=== PATIENT | male | born 1960 | race Caucasian/White ===

== ENCOUNTER 2016-08-04 20:15 | Inpatient (IN) | payer MEDICARE, OTHER ==
[~2016-08-04] VITALS: Ht 185.4 cm; Wt 97.2 kg
[2016-08-04] MEDS ORDERED: IV NORMAL SALINE 1,000ML 1,000 ML IV SCH (20:17)
[2016-08-04] MEDS ORDERED: 0.9 % SODIUM CHLORIDE 10 ML DISP.SYRIN. IV PRN (20:30)
[2016-08-04] MEDS ORDERED: ONDANSETRON PF 4 MG/2 ML VIAL. IV ONE (20:30)
[2016-08-04] MEDS ORDERED: MVI, ADULT NO.4 WITH VIT K 10 ML, FOLIC ACID SYRINGE for ER 1 MG, THIAMINE 100 MG in IV... IV SCH ×4 (20:30)
[2016-08-04] MEDS ORDERED: LORazepam 2 MG/ML VIAL IV ONE (20:30)
[2016-08-04 20:49] LABS: BASO # 0.1 x10^3/uL (0.0-0.2); BASO % 1 % (0-3); EOS # 0.7 x10^3/uL (0.0-0.7); EOS % 6 % (0-3); HEMATOCRIT 43.4 % (39.0-53.0); HEMOGLOBIN 14.9 g/dL (13.0-17.5); LYMPH # 2.8 x10^3/uL (1.0-4.8); LYMPH % 24 % (24-48); MEAN CORPUSCULAR HEMOGLOBIN 34 pg (25-35); MEAN CORPUSCULAR HGB CONC 34 g/dL (31-37); MEAN CORPUSCULAR VOLUME 100 fL (79-100); MONO # 1.7 x10^3/uL (0.0-1.1); MONO % 15 % (0-9); NEUT # 6.2 x10^3uL (1.8-7.7); NEUT % 54 % (31-73); PLATELET COUNT 237 x10^3/uL (140-400); RED BLOOD COUNT 4.33 x10^6/uL (4.30-5.70); WHITE BLOOD COUNT 11.5 x10^3/uL (4.0-11.0)
[2016-08-04 20:54] LABS: BILIRUBIN,URINE NEG (NEG); CLARITY,URINE CLEAR; COLOR,URINE STRAW; GLUCOSE,URINE NEG (NEG); NITRITE,URINE NEG (NEG); UROBILINOGEN,URINE 0.2 mg/dL (0.2 mg/dL)
[2016-08-04 20:55] LABS: BACTERIA,URINE 0 /HPF (0-FEW); RBC,URINE 0 /HPF (0-2); SQUAMOUS EPITHELIAL CELL,UR OCC /LPF; WBC,URINE OCC /HPF (0-4)
[2016-08-04 20:56] LABS: AMPHETAMINE/METHAMPHETAMINE NEG (NEG); BARBITURATES NEG (NEG); BENZODIAZEPINES NEG (NEG); CANNABINOIDS NEG (NEG); COCAINE NEG (NEG); METHADONE NEG (NEG); OPIATES NEG (NEG); PHENCYCLIDINE NEG (NEG)
[2016-08-04 21:14] LABS: ALBUMIN 3.7 g/dL (3.4-5.0); CALCIUM 8.5 mg/dL (8.5-10.1); CREATININE 0.9 mg/dL (0.7-1.3); DIRECT BILIRUBIN 0.1 mg/dL (0.0-0.2); GFR 87.3; POTASSIUM 3.5 mmol/L (3.5-5.1); TOTAL BILIRUBIN 0.3 mg/dL (0.2-1.0); TOTAL PROTEIN 7.9 g/dL (6.4-8.2)
--- NOTE | 2016-08-04 21:15 | RAD ---
EXAM: Head CT without contrast. HISTORY: Fall. TECHNIQUE: Computed tomographic images of the head were obtained without contrast. *One or more of the following individualized dose reduction techniques were utilized for this examination: 1. Automated exposure control. 2. Adjustment of the mA and/or kV according to patient size. 3. Use of iterative reconstruction technique. COMPARISON: 08/29/2014. FINDINGS: There is increased density within the extra-axial space along the left cerebral convexity which is not seen on consecutive images and likely due to prominent cortical vessels. No convincing hemorrhage is seen. There are chronic infarcts within the left greater than right posterior frontal lobes. There are subtle areas of hypodensity within the cerebral white matter, likely due to chronic small vessel disease. The orbits are unremarkable. There is moderate right and mild left maxillary and severe bilateral ethmoid sinus mucosal thickening. There is complete opacification of the right mastoid air cells and middle ear. No calvarial lesion is seen. IMPRESSION: 1. No acute intracranial finding. 2. Chronic infarcts within the left greater than right posterior frontal lobes near the vertex. 3. Subtle areas of hypodensity within the cerebral white matter, likely artifactual due to chronic small vessel disease. 4. Complete opacification of the left mastoid air cells and middle ear. Correlate for otomastoiditis. 5. Paranasal sinus disease. Electronically signed by: Lisa Mcneill MD (08/04/2016 9:12 PM)
--- NOTE | 2016-08-04 21:37 | PHYS DOC ---
Past History Past Medical History: GERD, Seizure Past Surgical History: No Surgical History Alcohol Use: Heavy Drug Use: None Adult General Chief Complaint Chief Complaint: ALCOHOL INTOXICATION HPI HPI This is a pleasant 56 and respiratory by EMS because he was found down in his apartment by his roommate intoxicated. It is unclear how long the the patient had been down on the floor apparently sleeping. The roommate was fearful because he was unable to arouse him easily. Upon EMS arrival he is intoxicated but very appropriate although he had slurred speech and no complaints. He began talking about his experiences in his service for the [employer]. He denies any complaint of chest pain, headache, neck pain, numbness and tingling in any extremity. He is very jovial but also not up historian. He does provide a questionable history of delirium tremens in the past as well as multiple head injuries. Patient denies any abdominal pain, nausea, vomiting or other symptoms. He says he drinks heavy liquor tonight he was drinking Massimo Beam Review of Systems Review of Systems Constitutional: Denies fever or chills [] Eyes: Denies change in visual acuity, redness, or eye pain [] HENT: Denies nasal congestion or sore throat [] Respiratory: Denies cough or shortness of breath [] Cardiovascular: No additional information not addressed in HPI [] GI: Denies abdominal pain, nausea, vomiting, bloody stools or diarrhea [] : Denies dysuria or hematuria [] Musculoskeletal: Denies back pain or joint pain [] Integument: Denies rash or skin lesions [] Neurologic: Denies headache, focal weakness or sensory changes [] Intoxicated and somewhat hard understand but denied any of the symptoms. He is a questionable historian Current Medications Current Medications Current Medications Medications (Trade) Dose Ordered Sig/[facility] Start Time Stop Time Status Last Admin Dose Admin Lorazepam (Ativan) 2 mg 1X ONCE 08/04/16 20:30 08/04/16 20:52 DC 08/04/16 20:22 2 MG Multivitamins/ Minerals 10 ml/ Folic Acid 1 mg/ Thiamine HCl 100 mg/Sodium Chloride 1,011.2 ml @ 1,000 mls/ hr Q1H 08/04/16 20:30 08/04/16 21:13 DC 08/04/16 20:30 1,000 MLS/HR Ondansetron HCl (Zofran) 4 mg 1X ONCE 08/04/16 20:30 08/04/16 20:52 DC 08/04/16 20:22 4 MG Sodium Chloride 1,000 ml @ 1,000 mls/hr Q1H 08/04/16 20:17 08/04/16 21:16 DC 08/04/16 20:17 1,000 MLS/HR Sodium Chloride (Normal Saline Flush) 10 ml QSHIFT PRN 08/04/16 20:30 08/04/16 20:22 10 ML Allergies Allergies Allergies Coded Allergies Type Severity Reaction Last Updated Verified No Known Drug Allergies 08/04/16 No Physical Exam Physical Exam Constitutional: Well developed, well nourished, no acute distress, very intoxicated appearance with slurred speech no obvious signs of deformity on his forehead upper chest or back. HENT: Normocephalic, atraumatic, bilateral external ears normal, dry mucous membranes, no oral exudates, nose normal. [] Eyes: PERRLA, EOMI, conjunctiva injected but nonicteric, no discharge. [] Neck: Normal range of motion, no tenderness, supple, no stridor. [] Cardiovascular:Heart rate regular rhythm, no murmur [] Lungs & Thorax: Bilateral breath sounds clear to auscultation [] Abdomen: Bowel sounds normal, soft, no tenderness, no masses, no pulsatile masses. [] Skin: Warm, dry, no erythema, no rash. [] Back: No tenderness, no CVA tenderness. [] Extremities: No tenderness, no cyanosis, no clubbing, ROM intact, no edema. [] Neurologic: Patient is intoxicated but oriented to person and history of his prior service. Psychologic: This patient is jovial but not at these historian he becomes agitated at times but easily consolable and calm's with reassurance. As soon as we turned off the overhead lights this patient fell sleep with sonorous respirations symptoms and treatment is 98% on room air. Current Patient Data Vital Signs Vital Signs Date Time Temp Pulse Resp B/P (MAP) Pulse Ox O2 Delivery O2 Flow Rate FiO2 08/04/16 20:15 97.5 80 20 94 Room Air Lab Results Laboratory Tests Test 08/04/16 20:20 08/04/16 20:31 White Blood Count 11.5 x10^3/uL (4.0-11.0) H Red Blood Count 4.33 x10^6/uL (4.30-5.70) Hemoglobin 14.9 g/dL (13.0-17.5) Hematocrit 43.4 % (39.0-53.0) Mean Corpuscular Volume 100 fL (79-100) Mean Corpuscular Hemoglobin 34 pg (25-35) Mean Corpuscular Hemoglobin Concent 34 g/dL (31-37) Red Cell Distribution Width 13.0 % (11.5-14.5) Platelet Count 237 x10^3/uL (140-400) Neutrophils (%) (Auto) 54 % (31-73) Lymphocytes (%) (Auto) 24 % (24-48) Monocytes (%) (Auto) 15 % (0-9) H Eosinophils (%) (Auto) 6 % (0-3) H Basophils (%) (Auto) 1 % (0-3) Neutrophils # (Auto) 6.2 x10^3uL (1.8-7.7) Lymphocytes # (Auto) 2.8 x10^3/uL (1.0-4.8) Monocytes # (Auto) 1.7 x10^3/uL (0.0-1.1) H Eosinophils # (Auto) 0.7 x10^3/uL (0.0-0.7) Basophils # (Auto) 0.1 x10^3/uL (0.0-0.2) Sodium Level 138 mmol/L (136-145) Potassium Level 3.5 mmol/L (3.5-5.1) Chloride Level 101 mmol/L (98-107) Carbon Dioxide Level 23 mmol/L (21-32) Anion Gap 14 (6-14) Blood Urea Nitrogen 8 mg/dL (8-26) Creatinine 0.9 mg/dL (0.7-1.3) Estimated GFR (Cockcroft-Gault) 87.3 Glucose Level 88 mg/dL (70-99) Calcium Level 8.5 mg/dL (8.5-10.1) Total Bilirubin 0.3 mg/dL (0.2-1.0) Direct Bilirubin 0.1 mg/dL (0.0-0.2) Aspartate Amino Transferase (AST) 21 U/L (15-37) Alanine Aminotransferase (ALT) 23 U/L (16-63) Alkaline Phosphatase 84 U/L (46-116) Creatine Kinase 78 U/L (39-308) Creatine Kinase MB (Mass) 0.7 ng/mL (0.0-3.6) Creatine Kinase MB Relative Index 0.9 % (0-4) Troponin I Quantitative < 0.017 ng/mL (0-0.055) Total Protein 7.9 g/dL (6.4-8.2) Albumin 3.7 g/dL (3.4-5.0) Ethyl Alcohol Level 279 mg/dL (0-10) H Urine Collection Type Unknown Urine Color Straw Urine Clarity Clear Urine pH 5.5 Urine Specific Armstrong <=1.005 Urine Protein Neg (NEG-TRACE) Urine Glucose (UA) Neg mg/dL (NEG) Urine Ketones (Stick) Neg mg/dL (NEG) Urine Blood Trace (NEG) Urine Nitrite Neg (NEG) Urine Bilirubin Neg (NEG) Urine Urobilinogen Dipstick 0.2 mg/dL (0.2 mg/dL) Urine Leukocyte Esterase Neg (NEG) Urine RBC 0 /HPF (0-2) Urine WBC Occ /HPF (0-4) Urine Squamous Epithelial Cells Occ /LPF Urine Bacteria 0 /HPF (0-FEW) Urine Opiates Screen Neg (NEG) Urine Methadone Screen Neg (NEG) Urine Barbiturates Neg (NEG) Urine Phencyclidine Screen Neg (NEG) Urine Amphetamine/Methamphetamine Neg (NEG) Urine Benzodiazepines Screen Neg (NEG) Urine Cocaine Screen Neg (NEG) Urine Cannabinoids Screen Neg (NEG) Urine Ethyl Alcohol Pos (NEG) EKG EKG [] Radiology/Procedures Radiology/Procedures [] [place] [address] IMAGING REPORT Signed PATIENT: NOE AMEZCUA ACCOUNT: [id number] : 1960 LOCATION: ER AGE: 56 SEX: M EXAM STATUS: REG ER ORD. PHYSICIAN: TANYA MARQUEZ MD REASON: ?? fall found down at home, intoxication, confusion PROCEDURE: CT HEAD WO CONTRAST EXAM: Head CT without contrast. HISTORY: Fall. TECHNIQUE: Computed tomographic images of the head were obtained without contrast. *One or more of the following individualized dose reduction techniques were utilized for this examination: 1. Automated exposure control. 2. Adjustment of the mA and/or kV according to patient size. 3. Use of iterative reconstruction technique. COMPARISON: 08/29/2014. FINDINGS: There is increased density within the extra-axial space along the left cerebral convexity which is not seen on consecutive images and likely due to prominent cortical vessels. No convincing hemorrhage is seen. There are chronic infarcts within the left greater than right posterior frontal lobes. There are subtle areas of hypodensity within the cerebral white matter, likely due to chronic small vessel disease. The orbits are unremarkable. There is moderate right and mild left maxillary and severe bilateral ethmoid sinus mucosal thickening. There is complete opacification of the right mastoid air cells and middle ear. No calvarial lesion is seen. IMPRESSION: 1. No acute intracranial finding. 2. Chronic infarcts within the left greater than right posterior frontal lobes near the vertex. 3. Subtle areas of hypodensity within the cerebral white matter, likely artifactual due to chronic small vessel disease. 4. Complete opacification of the left mastoid air cells and middle ear. Correlate for otomastoiditis. 5. Paranasal sinus disease. Electronically signed by: Lisa Young MD (08/04/2016 9:12 PM) DICTATED AND SIGNED BY: LISA YOUNG MD DATE: 08/04/162108 CC: TANYA MARQUEZ MD; UNKNOWN ~ Course & Med Decision Making Course & Med Decision Making Pertinent Labs and Imaging studies reviewed. (See chart for details) patient's laboratory work is returned demonstrates an EtOH level of 279 which explains his level of intoxication. The rest of this patient's labs are unremarkable at this time. He has no evidence of a toxidrome. There is no evidence of hypoventilation on physical exam or on vital signs. Patient is resting quietly and comfortably in a little concerned about this questionable history of delirium tremens in the past. I may admit him to the hospital for a period of observation to ensure that he has adequate treatment. While in the emergency department he did receive 2 mg of IV Ativan. CT scan of the head is still pending at this time approximately 9:36 PM. 20 9:[address] is completed with no evidence of intracranial injury hematoma or mass or bleed. Patient is completely intoxicated and sleeping quietly at this time. I'm concerned given his history of DTs as per cc supply. He first arrived and there is no one home with him at this time he has no ride home and no one that can observe him overnight I would for her to admit this patient to inpatient setting really observed and treated with benzodiazepines to prevent any DTs from erupting. There also allow us to slowly bring down his alcohol level appropriately so that he does not precipitate an acute withdrawal reaction. Landscape Designer note: Called internal medicine at approximately 9:55 PM Landscape Designer called at of the service hospitalist Consult called back at: 9:57 Discussed the case I presented and they agreed with admission. Time of acceptance 9:57 impression: Acute alcohol intoxication, history of delirium tremens Disposition: Given his acute intoxication and no clear safety net at home we will admit him to the hospital for alcohol withdrawal and prevent him from going to seizures by using an aggressive benzodiazepine protocol with clonidine and Haldol if necessary [] Dragon Disclaimer Dragon Disclaimer This chart was dictated in whole or in part using Voice Recognition software in a busy, high-work load, and often noisy Emergency Department environment. It may contain unintended and wholly unrecognized errors or omissions. Departure Departure: Impression: Primary Impression: Alcohol intoxication Disposition: ADMITTED INPATIENT Admitting Physician: Senia Ramirez Condition: GUARDED Referrals: UNKNOWN (PCP) TANYA MARQUEZ MD Aug 04, 2016 21:37
[2016-08-04] MEDS ORDERED: cloNIDine HCL 0.1 MG TABLET PO PRN (22:00)
[2016-08-04] MEDS ORDERED: HALOPERIDOL LACT 5 MG/ML VIAL. IM PRN (22:00)
[2016-08-04] MEDS ORDERED: LORazepam 2 MG/ML VIAL IV PRN ×3 (22:00)
[2016-08-04] MEDS ORDERED: ONDANSETRON PF 4 MG/2 ML VIAL. IV PRN (22:00)
[2016-08-04 23:10] VITALS: BP 98/64
[2016-08-04 23:15] VITALS: BP 98/64
[2016-08-05] MEDS: IV NORMAL SALINE 1,000ML 1,000 ML IV SCH ×3 (00:08→13:14)
[2016-08-05 04:00] VITALS: BP 127/95
[2016-08-05] MEDS: LORazepam 2 MG/ML VIAL IV PRN ×4 (04:17→23:00)
[2016-08-05 06:17] LABS: ALBUMIN/GLOBULIN RATIO 0.9 (1.0-1.7); CALCIUM 7.4 mg/dL (8.5-10.1); CREATININE 0.9 mg/dL (0.7-1.3); GFR 87.3; MAGNESIUM 1.8 mg/dL (1.8-2.4); POTASSIUM 4.1 mmol/L (3.5-5.1); TOTAL BILIRUBIN 0.3 mg/dL (0.2-1.0); TOTAL PROTEIN 6.5 g/dL (6.4-8.2)
[2016-08-05 06:23] LABS: BASO # 0.1 x10^3/uL (0.0-0.2); BASO % 1 % (0-3); EOS # 0.7 x10^3/uL (0.0-0.7); EOS % 7 % (0-3); HEMATOCRIT 41.4 % (39.0-53.0); HEMOGLOBIN 13.9 g/dL (13.0-17.5); LYMPH # 1.5 x10^3/uL (1.0-4.8); LYMPH % 15 % (24-48); MEAN CORPUSCULAR HEMOGLOBIN 34 pg (25-35); MEAN CORPUSCULAR HGB CONC 34 g/dL (31-37); MEAN CORPUSCULAR VOLUME 102 fL (79-100); MONO # 1.2 x10^3/uL (0.0-1.1); MONO % 12 % (0-9); NEUT # 6.6 x10^3uL (1.8-7.7); NEUT % 66 % (31-73); PLATELET COUNT 216 x10^3/uL (140-400); RED BLOOD COUNT 4.07 x10^6/uL (4.30-5.70)
[2016-08-05 08:32] VITALS: BP 129/68
[2016-08-05 10:28] VITALS: BP 103/58
[2016-08-05 14:49] VITALS: BP 131/80
--- NOTE | 2016-08-05 17:27 | HP ---
ADMIT DATE: 08/05/2016 HISTORY OF PRESENT ILLNESS: The patient is a 56-year-old male patient, who was brought by emergency medical services to the Emergency Room as he was found down on the floor apparently sleeping. According to the ER physician, his roommate was fearful because he was unable to arouse him easily. Although, the patient himself said that he lives alone. When they arrived, they found him intoxicated, but very appropriate. Although, he had slurred speech and no complaints. He denied any complaint of chest pain, headache, neck pain, numbness or tingling in his extremities. He did provide history of delirium treatments in the past as well as multiple head injuries. He was evaluated in the Emergency Room, was found to have blood alcohol level 179 and decision was made to admit him for observation. He has had a CT scan of the head, which showed that he has chronic infarcts within the left greater than right posterior frontal lobe near the vertex, has also within the cerebral white matter, likely artifactual due to chronic small vessel disease. He has complete opacification of his left mastoid air cells and middle ear. 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 He also had seizures that happened immediately after surgery, although he is not on any anti-seizure medications. PAST SURGICAL HISTORY: Significant for tonsillectomy. He has also partial resection of his small bowel, bilateral tibial fracture, right fibula fracture, right radial and ulnar fracture, all treated with casting. ALLERGIES: He has no known drug allergies. MEDICATIONS: He is currently on no medication. FAMILY HISTORY: He has 1 brother, who is older and healthy. One sister younger and healthy. His father at the age of 71 because of lung cancer and mother at age of 61 due to myocardial infarction. SOCIAL HISTORY: He is single, has no children. He smokes a pack a day and drinks about 12 cans of beer a day. Does not use any drugs. He is currently on disability and [employer] . REVIEW OF SYSTEMS: The patient denied any blurring of vision, cataract, glaucoma or macular degeneration. Denied any earache, tinnitus or sensorineural deafness. Denied any nosebleeds, stuffy nose or postnasal drip. Denied any sore throat, sore tongue, toothache, hoarseness of voice or difficulty swallowing. Denied any nausea, vomiting, diarrhea or constipation. Denied any hematemesis, melena or hematochezia. Denied any dysuria, frequency or hematuria. Denied any chest pain, shortness of breath, orthopnea, paroxysmal nocturnal dyspnea. Denied any cough, phlegm or hemoptysis. Denied any dizziness, lightheadedness or vertigo. He did say that he has unsteady gait and normally uses a cane. PHYSICAL EXAMINATION: GENERAL: On examining him, he looked well and was clearly in no apparent respiratory distress. There is no pallor, jaundice or cyanosis. No lymphadenopathy, no thyromegaly, no jugular venous distention, no limb edema. VITAL SIGNS: His heart rate was 64, blood pressure was 98/64, temperature was 98.4, respiratory rate was 22 and oxygen saturation was 96% on room air. HEAD, EYES, EARS, NOSE AND THROAT: Showed normocephalic, atraumatic. NECK: Supple. HEART: Showed normal first and second heart sounds with no gallop, rub or murmur. CHEST: Clear to auscultation. No crepitation or rhonchi. ABDOMEN: Distended, soft, nontender. No guarding or rigidity. No organomegaly. All hernial orifices intact. Bowel sounds normal. NEUROLOGIC: He was awake, alert, responding appropriately. Cranial nerves intact. EXTREMITIES: He moves all his extremities without difficulty, although when he arrived to the Emergency Room, he was intoxicated and his gait was not tested. LABORATORY DATA: While in the Emergency Room, he has had lab work done, which showed a white cell count of 11,500, hemoglobin 15, hematocrit 43, MCV 100, and platelet count 237,000. Serum sodium was 138, potassium 3.5, chloride 101, bicarbonate 23, anion gap of 14, BUN 8, creatinine 0.9 mg/dL, estimated GFR was 87 mL per minute. His glucose was 88, calcium was 8.5, magnesium was 1.8. Total bilirubin, AST, ALT, alkaline phosphatase were normal. His total protein was 7.9 and albumin was 3.7. His urinalysis showed the urine was straw colored, clear with a pH of 5.5, specific gravity 1.005. The urine was negative for protein, glucose, ketones. There was trace of blood, negative for nitrite and leukocyte esterase. There are no rbc's, no wbc's and no bacteria. His urine toxicology screen was positive for ethyl alcohol with blood alcohol level of 279. The urine was negative for opiates, methadone, barbiturates, phencyclidine, amphetamine, methamphetamine, benzodiazepine, cocaine, and cannabinoids. ASSESSMENT AND PLAN: In summary, the patient was basically admitted with alcohol intoxication and has history of delirium tremens. The patient was admitted and was started on alcohol withdrawal protocol and we will decide on further management according to his response. ROBIN BRAND MD DR: TUNG/nayan JOB#: [id number] / [id number]
[2016-08-05 19:00] VITALS: BP 144/82
[2016-08-05 23:26] VITALS: BP 153/87
--- NOTE | 2016-08-06 00:04 | PN ---
DATE: 08/05/2016 SUBJECTIVE: The patient is resting, slightly propped up in bed, in no apparent distress. On questioning him, he denied any complaint. The nursing staff did not voice any concern. OBJECTIVE: GENERAL: When I examined him, he was resting slightly propped up in bed, no pallor, jaundice, cyanosis, or thyromegaly. No jugular venous distention. No limb edema. VITAL SIGNS: His heart rate was 86, blood pressure was 131/80, temperature was 97.3, respiratory rate 20, and oxygen saturation was 98%. HEAD, EYES, EARS, NOSE AND THROAT: Normocephalic, atraumatic. NECK: Supple. HEART: Showed normal first and second heart sounds with no gallop, rub or murmur. CHEST: Clear to auscultation. No crepitation or rhonchi. ABDOMEN: Distended, soft, nontender. NEUROLOGIC: He was awake, alert, responding appropriately. His cranial nerves were intact. He moves extremities without difficulty. His intake over the last 24 hours was 3000, output was 1200. LABORATORY DATA: His lab work this morning showed a white cell count of 10,000, hemoglobin 14, hematocrit 41, MCV 102 and platelet count of 216,000. His chemistry showed a serum sodium of 143, potassium 4.1, chloride 109, bicarbonate 24, anion gap of 10, BUN 5, creatinine 0.9, estimated GFR was 87 mL per minute. His glucose was 84, calcium was , magnesium was 1.8. Total bilirubin, AST, ALT, alkaline phosphatase were normal. Total protein 6.5, albumin 3. ASSESSMENT AND PLAN: We initially planned to discharge him home; however, he was noted to be extremely unsteady and we asked Physical Therapy to evaluate him. The patient was clearly very unsteady on his feet. He has nearly fallen about 15 times, with a gait belt and a walker and ____ his blood alcohol level is down to 78 from 279 this morning and therefore we have arranged for him to be evaluated again tomorrow and if he is steady on his feet tomorrow, we will discharge him home. ROBIN BRAND MD DR: TUNG/nayan JOB#: [id number] / [id number]
[2016-08-06 05:23] VITALS: BP 153/85
[2016-08-06 05:44] LABS: BASO # 0.1 x10^3/uL (0.0-0.2); BASO % 1 % (0-3); EOS # 0.7 x10^3/uL (0.0-0.7); EOS % 8 % (0-3); HEMATOCRIT 37.4 % (39.0-53.0); HEMOGLOBIN 12.8 g/dL (13.0-17.5); LYMPH # 1.3 x10^3/uL (1.0-4.8); LYMPH % 14 % (24-48); MEAN CORPUSCULAR HEMOGLOBIN 35 pg (25-35); MEAN CORPUSCULAR HGB CONC 34 g/dL (31-37); MEAN CORPUSCULAR VOLUME 101 fL (79-100); MONO % 11 % (0-9); NEUT # 5.8 x10^3uL (1.8-7.7); NEUT % 65 % (31-73); PLATELET COUNT 188 x10^3/uL (140-400); RED BLOOD COUNT 3.72 x10^6/uL (4.30-5.70); RED CELL DISTRIBUTION WIDTH 12.9 % (11.5-14.5); WHITE BLOOD COUNT 8.8 x10^3/uL (4.0-11.0)
[2016-08-06 06:01] LABS: ALBUMIN 2.7 g/dL (3.4-5.0); ALBUMIN/GLOBULIN RATIO 0.8 (1.0-1.7); CALCIUM 7.8 mg/dL (8.5-10.1); CREATININE 0.9 mg/dL (0.7-1.3); GFR 87.3; POTASSIUM 3.5 mmol/L (3.5-5.1); TOTAL BILIRUBIN 0.5 mg/dL (0.2-1.0); TOTAL PROTEIN 6.1 g/dL (6.4-8.2)
[2016-08-06] MEDS ORDERED: IV NORMAL SALINE 1,000ML 1,000 ML IV SCH (07:45)
[2016-08-06] MEDS ORDERED: FOLIC ACID 1 MG TABLET PO SCH (09:00)
[2016-08-06] MEDS ORDERED: PRENATAL MULTIVITAMIN TABLET. PO SCH (09:00)
[2016-08-06] MEDS ORDERED: THIAMINE 100 MG TABLET. PO SCH (09:00)
[2016-08-06 10:29] VITALS: BP 125/86
--- NOTE | 2016-08-06 18:07 | DS ---
DATE OF DISCHARGE: 08/06/2016 HOSPITAL COURSE: This is a 56-year-old male patient who was admitted originally with alcohol intoxication. His blood alcohol level was extremely high at 279 and the patient was continued on banana bag and alcohol withdrawal protocol. He apparently has chronic infarct within the left greater than right posterior frontal lobes and his gait is very unsteady and yesterday he has almost fallen multiple times even with the assistance, so we kept him overnight. He did somewhat better today and a decision was made to discharge him back home. Now, the blood alcohol level is normal. He walked around and he seemed to be a little bit steady, but he said that he always has this problem and has fallen multiple times in his apartment. PHYSICAL EXAMINATION: GENERAL: When I examined today, he looked well and was clearly in no apparent respiratory distress, pale, but no jaundice, cyanosis, or thyromegaly. No jugular venous distention. No limb edema. VITAL SIGNS: His heart rate was 78, blood pressure 125/86, temperature was 97.5, respiratory rate 20, and oxygen saturation was 98%. EXTREMITIES: He continues to have unsteady gait. He normally walks with a cane according to him. The rest of clinical exam is unremarkable. His intake over the last 24 hours was 1300, output 2000. LABORATORY DATA: As of this morning showed a serum sodium 140, potassium 3.5, chloride 107, bicarbonate 21, anion gap of 12, BUN 8, creatinine 0.9, estimated GFR was 87 mL per minute, his glucose was 113, calcium was 7.8. Total bilirubin, AST, ALT, and alkaline phosphatase were normal. Total protein 6.1, albumin 2.7. His CBC showed a white cell count of 8800, hemoglobin 12.8, hematocrit 37, MCV 101, and platelet count of 188,000. DISCHARGE DISPOSITION: The patient was discharged home. DISCHARGE MEDICATIONS: He is not on any medication by prescription or [id number]. FINAL DISCHARGE DIAGNOSES: Alcohol intoxication, according to him, he has a history of multiple cerebral abscesses that was drained and he has also marked ataxic gait since that time. Obviously, alcoholism, does not help that ataxia. ROBIN BRAND MD DR: TUNG/nayan JOB#: [id number] / [id number]
== END 2016-08-06 12:50 | disposition home or self-care (01) | DRG 897 ==
LOC: ER 20:15 → 1 SOUTH 21:59
PROVIDERS: ADMIT Internal Medicine; ATTEND Internal Medicine
DX: F10.229 Alcohol dependence with intoxication, unspecified (principal); F17.210 Nicotine dependence, cigarettes, uncomplicated; I73.9 Peripheral vascular disease, unspecified; R27.0 Ataxia, unspecified; F10.231 Alcohol dependence with withdrawal delirium; Y90.6 Blood alcohol level of 120-199 mg/100 ml; Z80.1 Family history of malignant neoplasm of trachea, bronchus and lung; Z82.49 Family history of ischemic heart disease and other diseases of the circulatory system; Z86.61 Personal history of infections of the central nervous system; Z91.81 History of falling; Z90.49 Acquired absence of other specified parts of digestive tract; Z87.81 Personal history of (healed) traumatic fracture; Z79.899 Other long term (current) drug therapy
CPT/HCPCS: 36415; 70450; 80048; 80053; 80076; 81001; 82553; 83735; 84484; 85027; 96365; 96366; 96375; G0480; G0481; J2060; J2405; 97116; 99285-25; J7030